=== PATIENT | male | born 1965 | race Caucasian/White ===

== ENCOUNTER 2023-06-06 10:23 | Day surgery (SDC) | payer BC ==
--- NOTE | 2023-06-06 07:32 | P.GSHP ---
History of Present Illness H&P Date: 06/06/23 Chief Complaint: Left abdominal wall mass 58-year-old male seen in March. Patient with an enlarging mass left upper abdominal wall for the last 10 years. Increasing in size. Occasionally sore. History of previous left flank incision for AAA repair. Past Medical History Past Medical History: COPD, Hyperlipidemia, Hypertension, Sleep Apnea/CPAP/BIPAP Additional Past Medical History / Comment(s): doesn't use cpap, just had sleep study completed, cellutitis to lower left leg History of Any Multi-Drug Resistant Organisms: None Reported Past Surgical History: Appendectomy, Cholecystectomy Additional Past Surgical History / Comment(s): aaa repair 2014, Past Anesthesia/Blood Transfusion Reactions: No Reported Reaction Additional Past Anesthesia/Blood Transfusion Reaction / Comment(s): no blood tx hx Smoking Status: Current every day smoker - Past Family History Father Family Medical History: No Reported History Medications and Allergies Home Medications Medication Instructions Recorded Confirmed Type Albuterol Sulfate [Albuterol 1 puff INHALATION DAILY PRN 06/02/23 06/02/23 History Sulfate Hfa] Aspirin [Adult Low Dose Aspirin EC] 81 mg PO DAILY 06/02/23 06/02/23 History Atorvastatin [Lipitor] 20 mg PO DAILY 06/02/23 06/02/23 History Furosemide [Lasix] 40 mg PO DAILY 06/02/23 06/02/23 History Metoprolol Tartrate [Lopressor] 50 mg PO DAILY 06/02/23 06/02/23 History lisinopriL 40 mg PO DAILY 06/02/23 06/02/23 History Allergies Allergy/AdvReac Type Severity Reaction Status Date / Time No Known Allergies Allergy Verified 06/02/23 11:00 Surgical - Exam Physical exam: General: Well-developed, well-nourished HEENT: Normocephalic, sclerae nonicteric Abdomen: Nontender, nondistended, 4 x 5 cm left upper quadrant lipomatous mass Extremities: No edema Neuro: Alert and oriented Assessment and Plan (1) Lipoma Narrative/Plan: 58-year-old male with left abdominal wall lipomatous mass. We'll proceed with surgical excision at this time. Risks of bleeding, infection, scarring, recurrence, possible findings of hernia reviewed. Patient understands and wishes to proceed. Status: Acute Code(s): D17.9 - BENIGN LIPOMATOUS NEOPLASM, UNSPECIFIED SNOMED Code(s): 79259339
[~2023-06-06 10:23] MED LIST: ACETAMINOPHEN TAB 500 MG TAB PO PRN; DEXAMETHASONE SOD PHOSPHATE 4 MG/ML 1 ML VIAL IV ONE; HEPARIN SODIUM,PORCINE 5,000 UNIT/ML 1 ML VIAL SQ PRN; HYDROmorphone 0.5 MG/0.5 ML SYRINGE IVP PRN; LACTATED RINGERS 1,000 ML IV SCH; LIDOCAINE 1% (10MG/ML) FOR IV START INTRADERMA PRN; ONDANSETRON 4 MG/2 ML VIAL IVP ONE; Pre Op ABX Message 1 EACH MISC MISCELLANE ONE; droPERidol 5 MG/2 ML VIAL IVP ONE
[2023-06-06] MEDS ORDERED: METOCLOPRAMIDE 5 MG/ML 2 ML VIAL ONE (11:22)
[2023-06-06] MEDS ORDERED: FAMOTIDINE 20 MG/2 ML VIAL IVP ONE (11:39)
[2023-06-06 11:45] LABS: Basophils # (A) 0.1 k/uL (0-0.2); Basophils % (A) 1 %; Eosinophils # (A) 0.3 k/uL (0-0.7); Eosinophils % (A) 3 %; HCT 45.3 % (39.0-53.0); HGB 16.2 gm/dL (13.0-17.5); Lymphocytes # (A) 1.6 k/uL (1.0-4.8); Lymphocytes % (A) 21 %; MCH 34.4 pg (25.0-35.0); MCHC 35.7 g/dL (31.0-37.0); MCV 96.2 fL (80.0-100.0); Mean Platelet Volume 8.3; Monocytes # (A) 0.4 k/uL (0-1.0); Monocytes % (A) 5 %; Neutrophils # (A) 5.2 k/uL (1.3-7.7); Neutrophils % (A) 69 %; Platelet Count 164 k/uL (150-450); RBC 4.71 m/uL (4.30-5.90); RDW 14.6 % (11.5-15.5); WBC 7.5 k/uL (3.8-10.6)
[2023-06-06] MEDS ORDERED: fentaNYL (PF) 50 MCG/ML 2 ML AMP ONE (11:50)
[2023-06-06] MEDS ORDERED: PROPOFOL 10 MG/ML 20 ML VIAL IV ONE (11:50)
[2023-06-06] MEDS ORDERED: MIDAZOLAM 2 MG/2 ML VIAL ONE (11:50)
[2023-06-06] MEDS ORDERED: LIDOCAINE 1% INJ 10MG/ML (20 ML MDV) ONE (11:50)
[2023-06-06] MEDS ORDERED: GLYCOPYRROLATE 0.2 MG/ML 2 ML VIAL ONE (11:50)
[2023-06-06] MEDS ORDERED: SODIUM CHLORIDE 0.9% 100 ML BAG ONE (11:50)
[2023-06-06] MEDS ORDERED: ceFAZolin 1,000 MG VIAL ONE (11:50)
[2023-06-06] MEDS ORDERED: SUCCINYLCHOLINE CHLORIDE 200 MG/10 ML VIAL IV ONE (11:50)
[2023-06-06] MEDS ORDERED: FLUMAZENIL 0.1 MG/ML 5 ML VIAL IVP ONE (11:50)
[2023-06-06] MEDS ORDERED: NALOXONE 0.4 MG/ML 1 ML VIAL ONE (11:50)
[2023-06-06] MEDS ORDERED: ePHEDrine 50 MG/ML 1 ML VIAL ONE (11:50)
[2023-06-06 11:55] LABS: Potassium 4.2 mmol/L (3.5-5.1)
[2023-06-06] MEDS ORDERED: SODIUM CHLORIDE 0.9% 100 ML with ceFAZolin 3,000 MG IV ONE ×2 (11:55)
[2023-06-06] MEDS ORDERED: BUPIVACAINE (PF) 0.25% 30 ML VIAL SQ ONE (12:18)
[2023-06-06] MEDS ORDERED: BACITRACIN ZINC 500 UNIT/GM OINT 28.4 GM TUBE TOPICAL ONE (12:25)
[2023-06-06] MEDS ORDERED: NALOXONE 0.4 MG/ML 1 ML VIAL IV PRN (12:46)
[2023-06-06] MEDS ORDERED: HYDROmorphone 0.5 MG/0.5 ML SYRINGE IVP PRN (12:46)
[2023-06-06] MEDS ORDERED: ACETAMINOPHEN TAB 325 MG TAB PO PRN (12:46)
--- NOTE | 2023-06-06 12:50 | P.OP ---
Date of Procedure: 06/06/23 Procedure(s) Performed: PREOPERATIVE DIAGNOSIS: Abdominal wall mass POSTOPERATIVE DIAGNOSIS: Same PROCEDURE: Excision abdominal wall mass with intermediate closure SURGEON: Andrade EBL: Priya Carlos ANESTHESIA: Gen. COMPLICATIONS: None OPERATIVE PROCEDURE: Patient placed supine. Placed under general anesthesia. Abdomen prepped and draped sterilely. Elliptical incision made overlying the palpable mass left midabdomen. Dissection through the subcutaneous tissues took place using electrocautery. Mass fully excised. Appeared most consistent with a sebaceous cyst that was mildly inflamed. Sizes specimen 4.5 x 8 cm. Subcutaneous tissues closed using 3-0 Vicryl sutures. Skin closed using a running 4-0 nylon stitch. Sterile dressings applied. DISPOSITION: Stable to recovery room
[2023-06-06 13:22] VITALS: TEMP 97.9
[2023-06-06 14:58] VITALS: RESP 16
[2023-06-06 15:22] VITALS: BP 128/73; PULSE 83
== END 2023-06-06 15:37 | disposition home or self-care (01) ==
LOC: OR 10:23
PROVIDERS: ATTEND Surgery
DX: L72.0 Epidermal cyst (principal); J44.9 Chronic obstructive pulmonary disease, unspecified; E78.5 Hyperlipidemia, unspecified; I10 Essential (primary) hypertension; I73.9 Peripheral vascular disease, unspecified; G47.33 Obstructive sleep apnea (adult) (pediatric); F17.200 Nicotine dependence, unspecified, uncomplicated; Z79.82 Long term (current) use of aspirin; Z79.899 Other long term (current) drug therapy
CPT/HCPCS: 94660; 88304; 80051; 85025; 11406; 12034; J2250; J0330; J1644; J2310; J2765; J2405; J0690; J2001; J3010; J3490; J2704; J0665

== ENCOUNTER 2023-10-14 12:01 | Day surgery (SDC) | payer BC ==
[2023-10-10 15:53] VITALS: BMI 46.0
[~2023-10-14 12:01] MED LIST changes: -ACETAMINOPHEN TAB 500 MG TAB PO PRN; -DEXAMETHASONE SOD PHOSPHATE 4 MG/ML 1 ML VIAL IV ONE; -HEPARIN SODIUM,PORCINE 5,000 UNIT/ML 1 ML VIAL SQ PRN; -HYDROmorphone 0.5 MG/0.5 ML SYRINGE IVP PRN; -LACTATED RINGERS 1,000 ML IV SCH; -ONDANSETRON 4 MG/2 ML VIAL IVP ONE; -Pre Op ABX Message 1 EACH MISC MISCELLANE ONE; -droPERidol 5 MG/2 ML VIAL IVP ONE
[2023-10-14] MEDS: LACTATED RINGERS 1,000 ML IV SCH (12:14)
[2023-10-14 13:43] VITALS: TEMP 98
[2023-10-14] MEDS ORDERED: PROPOFOL 10 MG/ML 20 ML VIAL IV ONE (13:49)
--- NOTE | 2023-10-14 13:51 | P.GSHP ---
History of Present Illness H&P Date: 10/14/23 Chief Complaint: Colon cancer screening 58-year-old male here for colonoscopy. Last colonoscopy 5 to 10 years ago. Patient states he had a polyp in the past. No bowel complaints. Past Medical History Past Medical History: COPD, Hyperlipidemia, Hypertension, Sleep Apnea/CPAP/BIPAP Additional Past Medical History / Comment(s): 10/10/23-Pt is feeling ill. He said he plans to "Load up on Vit C for a couple days.""He said,"I have a sore throat and my chest is getting heavy." Pt being switched to P-PAP but hasn't received machine yet. "It's on order." cellutitis to lower left leg 2022. "The last heart monitor the dr put me on he said the heart was fluttering he thought it might be from the Metoprolol. ""So he took me off of that and put me on a different medication." History of Any Multi-Drug Resistant Organisms: None Reported Past Surgical History: Appendectomy, Cholecystectomy Additional Past Surgical History / Comment(s): aaa repair 2014, Past Anesthesia/Blood Transfusion Reactions: No Reported Reaction Additional Past Anesthesia/Blood Transfusion Reaction / Comment(s): no blood tx hx Smoking Status: Current every day smoker - Past Family History Father Family Medical History: Cancer, COPD Additional Family Medical History / Comment(s): lung cancer Medications and Allergies Home Medications Medication Instructions Recorded Confirmed Type Albuterol Sulfate [Albuterol 1 puff INHALATION DAILY PRN 06/02/23 10/14/23 History Sulfate Hfa] Aspirin [Adult Low Dose Aspirin EC] 81 mg PO QAM 06/02/23 10/14/23 History Atorvastatin [Lipitor] 20 mg PO QAM 06/02/23 10/14/23 History Furosemide [Lasix] 40 mg PO QAM 06/02/23 10/14/23 History lisinopriL 40 mg PO QAM 06/02/23 10/14/23 History Multivitamins, Thera [Multivitamin 1 tab PO QAM 06/06/23 10/14/23 History (formulary)] Amlodipine (Unknown Dose) 1 dose PO QAM 10/10/23 10/14/23 History Fish Oil(Unknown Dose) 1 dose PO QAM 10/10/23 10/14/23 History Semaglutide [Wegovy] 0.25 mg SQ LIU 10/10/23 10/14/23 History Allergies Allergy/AdvReac Type Severity Reaction Status Date / Time No Known Allergies Allergy Verified 10/14/23 12:30 Surgical - Exam Vital Signs Temp Pulse Resp BP Pulse Ox 98 F 57 L 16 114/64 95 10/14/23 12:47 10/14/23 12:47 10/14/23 12:47 10/14/23 12:47 10/14/23 12:47 Physical exam: General: Well-developed, well-nourished HEENT: Normocephalic, sclerae nonicteric Abdomen: Nontender, nondistended Extremities: No edema Neuro: Alert and oriented Assessment and Plan (1) Colon cancer screening Narrative/Plan: Will proceed with colonoscopy at this time. Current Visit: Yes Status: Acute Code(s): Z12.11 - ENCOUNTER FOR SCREENING FOR MALIGNANT NEOPLASM OF COLON SNOMED Code(s): 632311818
--- NOTE | 2023-10-14 14:14 | P.PCN ---
Date of Procedure: 10/14/23 Procedure(s) Performed: PREOPERATIVE DIAGNOSIS: Colon cancer screening POSTOPERATIVE DIAGNOSIS: Rectal polyp x 2 PROCEDURE: Colonoscopy with snare ANESTHESIA: MAC SURGEON: Enrico Zafar M.D. SPECIMENS: Rectal polyps ENDOSCOPIC PROCEDURE: The patient was placed on the endoscopy table in the left decubitus position. The Olympus colonoscope was inserted into the anus and passed under direct visualization to the base of the cecum. The appendiceal orifice was visualized. From that point the scope was slowly withdrawn inspecting all surfaces carefully. There were no neoplastic inflammatory or polypoid lesions throughout the cecum, ascending, transverse, descending, and sigmoid colon. In the rectum 2 small polyps were seen and removed using the snare without cautery technique. No visible diverticulosis. Prep was slightly suboptimal. Digital rectal examination was normal. The patient was taken to the recovery room in stable condition per anesthesia guidelines. RECOMMENDATIONS: Await biopsy results. Will contact patient with timing of next colonoscopy.
[2023-10-14 14:43] VITALS: BP 139/77; PULSE 76; RESP 18
== END 2023-10-14 15:02 | disposition home or self-care (01) ==
LOC: ORWHC2ENDO 12:01
PROVIDERS: ATTEND Surgery
DX: Z12.11 Encounter for screening for malignant neoplasm of colon (principal); D12.8 Benign neoplasm of rectum; E78.5 Hyperlipidemia, unspecified; I10 Essential (primary) hypertension; J44.9 Chronic obstructive pulmonary disease, unspecified; E66.9 Obesity, unspecified; G47.33 Obstructive sleep apnea (adult) (pediatric); K21.9 Gastro-esophageal reflux disease without esophagitis; F17.210 Nicotine dependence, cigarettes, uncomplicated; Z79.82 Long term (current) use of aspirin; Z79.899 Other long term (current) drug therapy; Z79.51 Long term (current) use of inhaled steroids; Z98.890 Other specified postprocedural states; Z90.49 Acquired absence of other specified parts of digestive tract; Z86.010 Personal history of colon polyps
CPT/HCPCS: 88305; 45385; J2704